=== PATIENT | female | born 1960 | race Caucasian/White ===

== ENCOUNTER → 2023-08-24 | Outpatient (CLI) | payer OTHER ==
[~2023-08-24] MED LIST: CALC0.0017 TOP; CICL0.7739 TOP; CLOB0.0526 TOP; LACT10SO3 PO; ONDA4SOL PO; PANT40TA29 PO; RANI-397 PO; XARE20TA PO
== END ==
LOC: M RAD 11:17
PROVIDERS: ATTEND Physician Assistant
DX: I87.2 Venous insufficiency (chronic) (peripheral) (principal); I82.812 Embolism and thrombosis of superficial veins of left lower extremity

== ENCOUNTER → 2024-10-10 | Outpatient (CLI) | payer OTHER ==
[~2024-10-10] MED LIST changes: -LACT10SO3 PO; +LACT10SO94 PO
== END ==
LOC: M WHC 09:27
PROVIDERS: ATTEND Family Medicine
DX: M89.8X9 Other specified disorders of bone, unspecified site (principal)

== ENCOUNTER → 2024-12-10 | Outpatient (CLI) | payer OTHER ==
[~2024-12-10] MED LIST changes: +METHACHOLINE KIT (6 VIAL.NEB PREMIX) INH ONE
== END ==
LOC: M CARPUL 08:29
PROVIDERS: ATTEND Physician Assistant
DX: R06.02 Shortness of breath (principal)
CPT/HCPCS: 94070; 95070; J7674

== ENCOUNTER → 2024-12-16 | Outpatient (CLI) | payer OTHER ==
[~2024-12-16] MED LIST changes: +APRE30TA3 PO; +ECOT81TA5 PO; +HYDR2.5C54 TOP; -METHACHOLINE KIT (6 VIAL.NEB PREMIX) INH ONE; +ONDA-282 PO; +ROFL60CR TP
[2024-12-16 12:13] LABS: PLATELET COUNT, AUTOMATED 185 10^3/uL (150-450)
[2024-12-16 12:48] LABS: ALT/SGPT 17.0 U/L (7.0-40); AST/SGOT 22.0 U/L (<34); CALCIUM LEVEL 9.1 MG/DL (8.3-10.6); CARBON DIOXIDE LEVEL 27.0 MMOL/L (20-31); CHLORIDE LEVEL 103.0 MMOL/L (98-107); CHOLESTEROL LEVEL 196.0 MG/DL (<200); CHOLESTEROL RISK RATIO 5.15 (<5); CREATININE FOR GFR 1.02 MG/DL (0.55-1.30); GLOMERULAR FILTRATION RATE 62.2 (>45); LDL CHOLESTEROL 138.2 MG/DL (<100); NON-HDL-C 158.0 MG/DL; POTASSIUM SERUM 4.0 MMOL/L (3.5-5.1); SODIUM LEVEL 141.0 MMOL/L (136-145); TRIGLYCERIDES LEVEL 99.0 MG/DL (<150)
== END ==
LOC: M LAB 11:25
PROVIDERS: ATTEND Internal Medicine Cardiovascular Disease
DX: I50.812 Chronic right heart failure (principal); I25.10 Atherosclerotic heart disease of native coronary artery without angina pectoris; R00.0 Tachycardia, unspecified; R07.9 Chest pain, unspecified; R06.02 Shortness of breath; E78.5 Hyperlipidemia, unspecified

== ENCOUNTER 2024-12-18 10:26 | Inpatient (IN) | payer OTHER, MEDICAID ==
[~2024-12-18] VITALS: Ht 167.6 cm; Wt 123.5 kg
[~2024-12-18 10:26] MED LIST changes: -APRE30TA3 PO; -ECOT81TA5 PO; -ELIQ5TAB PO; -HYDR2.5C54 TOP; -ISOVUE-370 76% 100 ML VIAL As Ordered ONE; -ONDA-282 PO; -ROFL60CR TP
[2024-12-18 11:14] LABS: VENOUS BASE EXCESS -0.1 (-2.0-2.0); VENOUS HCO3 25.6 MMOL/L (23.0-27.0); VENOUS O2 SATURATION 70.7 % (60.0-80.0); VENOUS PARTIAL PRESSURE CO2 45.9 mmHg (38.0-50.0); VENOUS PARTIAL PRESSURE O2 38.4 mmHg (30.0-50.0); VENOUS PH 7.365 UNITS (7.330-7.430); VENOUS STANDARD HCO3 23.8 MMOL/L; VENOUS TOTAL CO2 27.1 MMOL/L (24.0-28.0)
[2024-12-18] MEDS: HEPARIN SOD 5000 UNITS/ML 1 ML VIAL/SYRINGE IV ONE (11:21)
[2024-12-18] MEDS: HEPARIN DRIP 25,000 UNITS in IV 1 EA IV SCH (11:21)
[2024-12-18 11:22] LABS: BASO # 0.0 10^3/uL (0.0-0.2); BASO % 0.5 % (0.0-1.0); EOS # 0.0 10^3/uL (0.0-0.5); EOS % 0.9 % (0.0-3.0); LYMPH # 1.3 10^3/uL (1.5-5.0); LYMPH % 28.4 % (24.0-44.0); MONO # 0.5 10^3/uL (0.0-0.8); MONO % 10.2 % (2.0-8.0); NEUTROPHILS # 2.6 10^3/uL (1.5-8.5); NEUTROPHILS % 59.3 % (36.0-66.0); PLATELET COUNT, AUTOMATED 175 10^3/uL (150-450)
[2024-12-18 11:44] LABS: INR 0.95
[2024-12-18 11:48] LABS: CPK CREATINE PHOSPHOKINASE 39 U/L (34-145)
[2024-12-18 11:49] LABS: ALT/SGPT 15 U/L (7.0-40); AST/SGOT 21 U/L (<34); CALCIUM LEVEL 8.6 MG/DL (8.3-10.6); CARBON DIOXIDE LEVEL 27 MMOL/L (20-31); CHLORIDE LEVEL 104 MMOL/L (98-107); CK-MB VALUE MASS < 1.0 NG/ML (<3.6); CREATININE FOR GFR 0.84 MG/DL (0.55-1.30); GLOMERULAR FILTRATION RATE 78.5 (>45); POTASSIUM SERUM 3.9 MMOL/L (3.5-5.1); SODIUM LEVEL 140 MMOL/L (136-145)
[2024-12-18] MEDS ORDERED: ROFL60CR TP (12:18)
[2024-12-18] MEDS ORDERED: ECOT81TA5 PO (12:18)
[2024-12-18] MEDS ORDERED: HYDR2.5C54 TOP (12:18)
[2024-12-18] MEDS ORDERED: ONDA-282 PO (12:18)
[2024-12-18] MEDS ORDERED: APRE30TA3 PO (12:18)
[2024-12-18] MEDS ORDERED: HOME MED LIST COMPLETE! XX SCH (12:20)
[2024-12-18] MEDS: TAMSULOSIN 0.4 MG CAP PO SCH (13:45)
[2024-12-18] MEDS: ENOXAPARIN 120 MG/0.8 ML SYRINGE SC SCH (18:15)
[2024-12-18 18:31] VITALS: BP 150/72; TEMP 97.3; O2SAT 98
[2024-12-18 19:32] VITALS: BP 128/67; TEMP 98.1; O2SAT 94
[2024-12-18] MEDS: PANTOPRAZOLE 40MG TAB PO SCH (20:01)
[2024-12-18 23:27] VITALS: BP 137/79; TEMP 98.8; O2SAT 96
[2024-12-19] VITALS (8 sets, daily range): BP systolic 121–143; BP diastolic 67–79; TEMP 97–98; O2SAT 94–98
[2024-12-19 05:59] LABS: PLATELET COUNT, AUTOMATED 149 10^3/uL (150-450)
[2024-12-19 06:21] LABS: INR 1.0
[2024-12-19 06:31] LABS: CALCIUM LEVEL 8.4 MG/DL (8.3-10.6); CARBON DIOXIDE LEVEL 25.0 MMOL/L (20-31); CHLORIDE LEVEL 106.0 MMOL/L (98-107); CREATININE FOR GFR 0.82 MG/DL (0.55-1.30); GLOMERULAR FILTRATION RATE 80.8 (>45); POTASSIUM SERUM 3.8 MMOL/L (3.5-5.1); SODIUM LEVEL 140.0 MMOL/L (136-145)
[2024-12-19] MEDS: NS (Normal Saline) 0.9% 1,000 ML IV SCH ×2 (08:53→14:19)
[2024-12-19] MEDS ORDERED: ELIQ5TAB PO (11:29)
[2024-12-19] MEDS: ACETAMINOPHEN 325 MG TAB PO PRN (11:58)
[2024-12-19] MEDS ORDERED: NS (Normal Saline) 0.9% 1,000 ML IV SCH (12:15)
[2024-12-19] MEDS: ISOVUE-300 61% 100 ML VIAL IV SCH (14:18)
[2024-12-19] MEDS: LIDOCAINE 1% MDV 20 ML VIAL SC SCH (14:18)
[2024-12-19] MEDS: HEPARIN 1,000 UNITS/ML 10 ML VIAL (FOR RADIOLOGY & DIALYSIS ONLY) IV PRN (14:20)
[2024-12-19] MEDS: MIDAZOLAM INJ 2 MG/2 ML VIAL IV PRN (14:20)
[2024-12-20 00:06] VITALS: BP 124/72; TEMP 97.7; O2SAT 96
[2024-12-20 02:52] LABS: CARDIOLIPIN IGA ANTIBODY 4.7 APL-U/mL (<20.0); CARDIOLIPIN IGG ANTIBODY < 2.0 GPL-U/mL (<20.0); CARDIOLIPIN IGM ANTIBODY 21.6 MPL-U/mL (<20.0)
[2024-12-20 03:49] VITALS: BP 137/73; TEMP 97.2; O2SAT 93
[2024-12-20 05:57] LABS: BASO # 0.0 10^3/uL (0.0-0.2); BASO % 0.4 % (0.0-1.0); EOS # 0.1 10^3/uL (0.0-0.5); EOS % 1.3 % (0.0-3.0); LYMPH # 1.0 10^3/uL (1.5-5.0); LYMPH % 21.2 % (24.0-44.0); MONO # 0.6 10^3/uL (0.0-0.8); MONO % 13.3 % (2.0-8.0); NEUTROPHILS # 3.0 10^3/uL (1.5-8.5); NEUTROPHILS % 63.2 % (36.0-66.0); PLATELET COUNT, AUTOMATED 151 10^3/uL (150-450)
[2024-12-20 06:27] LABS: CALCIUM LEVEL 8.8 MG/DL (8.3-10.6); CARBON DIOXIDE LEVEL 25.0 MMOL/L (20-31); CHLORIDE LEVEL 107.0 MMOL/L (98-107); CREATININE FOR GFR 0.79 MG/DL (0.55-1.30); GLOMERULAR FILTRATION RATE 84.5 (>45); POTASSIUM SERUM 4.1 MMOL/L (3.5-5.1); SODIUM LEVEL 142.0 MMOL/L (136-145)
[2024-12-20 08:00] VITALS: BP 111/58; TEMP 96.1; O2SAT 94
[2024-12-20 08:55] LABS: DRVV SCREEN 42.7 SECONDS
[2024-12-20 09:21] LABS: PTT LUPUS TYPE ANTICOAG SCREEN 1.09 (0-1.20)
[2024-12-20] MEDS: LR 1,000 ML IV SCH (10:12)
[2024-12-20 12:00] VITALS: BP 126/66; TEMP 97.2; O2SAT 94
[2024-12-20 16:00] VITALS: BP 132/73; TEMP 97.2; O2SAT 96
[2024-12-20 19:43] VITALS: BP 136/71; TEMP 98.5; O2SAT 96
[2024-12-21] VITALS: BP 126/61; TEMP 98.1; O2SAT 96
[2024-12-21 03:44] VITALS: BP 130/70; TEMP 98.5; O2SAT 93
[2024-12-21 05:51] LABS: BASO # 0.0 10^3/uL (0.0-0.2); BASO % 0.5 % (0.0-1.0); EOS # 0.1 10^3/uL (0.0-0.5); EOS % 1.4 % (0.0-3.0); LYMPH # 1.3 10^3/uL (1.5-5.0); LYMPH % 30.7 % (24.0-44.0); MONO # 0.7 10^3/uL (0.0-0.8); MONO % 16.7 % (2.0-8.0); NEUTROPHILS # 2.2 10^3/uL (1.5-8.5); NEUTROPHILS % 50.0 % (36.0-66.0); PLATELET COUNT, AUTOMATED 148 10^3/uL (150-450)
[2024-12-21 06:22] LABS: CALCIUM LEVEL 8.2 MG/DL (8.3-10.6); CARBON DIOXIDE LEVEL 26.0 MMOL/L (20-31); CHLORIDE LEVEL 104.0 MMOL/L (98-107); CREATININE FOR GFR 0.77 MG/DL (0.55-1.30); GLOMERULAR FILTRATION RATE 87.2 (>45); POTASSIUM SERUM 3.9 MMOL/L (3.5-5.1); SODIUM LEVEL 140.0 MMOL/L (136-145)
[2024-12-21 08:44] VITALS: BP 130/74; TEMP 98.4; O2SAT 94
[2024-12-21] MEDS ORDERED: OXYC1TAB23 PO (11:26)
[2024-12-23 15:33] LABS: PHOSPHOLIPIDS LEVEL 188 mg/dL (151-264)
[2024-12-24 03:02] LABS: PROTEIN C FUNCTIONAL ACTIVITY 126 % normal (70-180); PROTEIN S FUNCTIONAL ACTIVITY 86 % normal (60-140)
[2024-12-24 23:52] LABS: ANTI THROMBIN 3 ANTIGEN IMMUNO 106 % normal (80-120); ANTI THROMBIN 3 FUNCT ACTIVITY 116 % normal (80-135)
[2024-12-25 00:42] LABS: BETA-2 GLYCOPROTEIN I ABY IGA 2.2 U/mL (<20.0); BETA-2 GLYCOPROTEIN I ABY IGG < 2.0 U/mL (<20.0); BETA-2 GLYCOPROTEIN I ABY IGM 16.1 U/mL (<20.0)
[2024-12-25 20:48] LABS: FACTOR V LEIDEN FOR MEDINET NEGATIVE
[2024-12-27 10:43] LABS: DRVV SCREEN 43.0 SECONDS
[2024-12-27 10:44] LABS: PTT LUPUS TYPE ANTICOAG SCREEN 1.11 (0-1.20)
== END 2024-12-21 12:14 | disposition home or self-care (01) | DRG 950 ==
LOC: M ED 10:26 → M ED INP 13:26 → M PCU 18:25
PROVIDERS: ADMIT Internal Medicine; ATTEND Internal Medicine
PROC: 02CQ3ZZ Extirpation of Matter from Right Pulmonary Artery, Percutaneous Approach (ICD-10-PCS; principal; 2024-12-19 13:00)
DX: I26.99 Other pulmonary embolism without acute cor pulmonale (principal); Z68.41 Body mass index [BMI] 40.0-44.9, adult; I82.811 Embolism and thrombosis of superficial veins of right lower extremity; N20.1 Calculus of ureter; I51.3 Intracardiac thrombosis, not elsewhere classified; E66.01 Morbid (severe) obesity due to excess calories; L40.9 Psoriasis, unspecified; K21.9 Gastro-esophageal reflux disease without esophagitis; R31.0 Gross hematuria; Z90.49 Acquired absence of other specified parts of digestive tract; Z79.82 Long term (current) use of aspirin; Z79.899 Other long term (current) drug therapy; Z88.0 Allergy status to penicillin; Z88.8 Allergy status to other drugs, medicaments and biological substances

== ENCOUNTER → 2024-12-18 | Outpatient (CLI) | payer OTHER ==
[~2024-12-18] MED LIST changes: +ELIQ5TAB PO; +ISOVUE-370 76% 100 ML VIAL As Ordered ONE
== END ==
LOC: M RAD 08:12
PROVIDERS: ATTEND Internal Medicine Cardiovascular Disease
DX: R00.0 Tachycardia, unspecified (principal); R07.9 Chest pain, unspecified; R06.02 Shortness of breath; I50.812 Chronic right heart failure; R94.31 Abnormal electrocardiogram [ECG] [EKG]; J98.11 Atelectasis; J98.4 Other disorders of lung
CPT/HCPCS: 71275; 93306; Q9967

== ENCOUNTER → 2024-12-25 | Outpatient (CLI) | payer OTHER ==
[~2024-12-25] MED LIST changes: +APRE30TA3 PO; +ATOR1TAB21 PO; +ECOT81TA5 PO; +ELIQ5TAB PO; +FLUT12AE2 INH; +HYDR2.5C54 TOP; +MECL-86 PO; +ONDA-282 PO; +OXYC1TAB23 PO; +ROFL60CR TP; +VENTAER INH
== END ==
LOC: M EKG 10:00
PROVIDERS: ATTEND Internal Medicine Cardiovascular Disease
DX: R00.0 Tachycardia, unspecified (principal)

== ENCOUNTER 2024-12-26 09:21 | Emergency (ER) | payer OTHER ==
[~2024-12-26] VITALS: Ht 167.6 cm; Wt 121.3 kg
[~2024-12-26 09:21] MED LIST changes: -ATOR1TAB21 PO; -FLUT12AE2 INH; -MECL-86 PO; -VENTAER INH
[2024-12-26] MEDS ORDERED: ATOR1TAB21 PO (09:29)
[2024-12-26 10:10] LABS: BASO # 0.0 10^3/uL (0.0-0.2); BASO % 0.7 % (0.0-1.0); EOS # 0.1 10^3/uL (0.0-0.5); EOS % 1.6 % (0.0-3.0); LYMPH # 1.2 10^3/uL (1.5-5.0); LYMPH % 21.7 % (24.0-44.0); MONO # 0.6 10^3/uL (0.0-0.8); MONO % 11.1 % (2.0-8.0); NEUTROPHILS # 3.6 10^3/uL (1.5-8.5); NEUTROPHILS % 64.4 % (36.0-66.0); PLATELET COUNT, AUTOMATED 212 10^3/uL (150-450)
[2024-12-26 10:42] LABS: CALCIUM LEVEL 9.3 MG/DL (8.3-10.6); CARBON DIOXIDE LEVEL 26.0 MMOL/L (20-31); CHLORIDE LEVEL 104.0 MMOL/L (98-107); CREATININE FOR GFR 0.85 MG/DL (0.55-1.30); GLOMERULAR FILTRATION RATE 77.4 (>45); INR 1.42; POTASSIUM SERUM 4.2 MMOL/L (3.5-5.1); SODIUM LEVEL 143.0 MMOL/L (136-145)
[2024-12-26] MEDS ORDERED: ELIQ5TAB PO (11:11)
[2024-12-26] MEDS ORDERED: OXYC1TAB23 PO (11:11)
[2024-12-26] MEDS ORDERED: MECL-86 PO (11:11)
[2024-12-26] MEDS ORDERED: VENTAER INH (11:11)
[2024-12-26] MEDS ORDERED: FLUT12AE2 INH (11:11)
[2024-12-26] MEDS ORDERED: ISOVUE-370 76% 100 ML VIAL As Ordered ONE (11:12)
[2024-12-26] MEDS ORDERED: HOME MED LIST COMPLETE! XX SCH (11:20)
[2024-12-26 12:21] VITALS: TEMP 97.2
[2024-12-26 13:00] VITALS: BP 134/74; O2SAT 99
== END 2024-12-26 13:12 | disposition home or self-care (01) ==
LOC: M ED 09:21
DX: M79.81 Nontraumatic hematoma of soft tissue (principal); R00.0 Tachycardia, unspecified; Z88.0 Allergy status to penicillin; Z88.8 Allergy status to other drugs, medicaments and biological substances; Z79.51 Long term (current) use of inhaled steroids; Z79.01 Long term (current) use of anticoagulants; Z79.899 Other long term (current) drug therapy
CPT/HCPCS: 36415; 71045; 74177; 80048; 85025; 85610; 93005; 93041; 93926; 94760; 99285; Q9967

== ENCOUNTER → 2025-01-06 | Outpatient (POV) | payer OTHER ==
[~2025-01-06] MED LIST changes: +ATOR1TAB21 PO; +FLUT12AE2 INH; +GNP250TA9 PO; +MECL-86 PO; +MULT-90 PO; +VENTAER INH
== END ==
LOC: M IRPOV 09:00
PROVIDERS: ATTEND Registered Nurse School
DX: R06.09 Other forms of dyspnea (principal); L76.32 Postprocedural hematoma of skin and subcutaneous tissue following other procedure; R31.9 Hematuria, unspecified; Z79.01 Long term (current) use of anticoagulants; Z79.82 Long term (current) use of aspirin; Z79.899 Other long term (current) drug therapy; Z86.711 Personal history of pulmonary embolism

== ENCOUNTER → 2025-01-07 | Outpatient (CLI) | payer OTHER ==
[~2025-01-07] MED LIST changes: -GNP250TA9 PO; -MULT-90 PO
== END ==
LOC: M SLEEP HO 10:55
PROVIDERS: ATTEND Internal Medicine Cardiovascular Disease
DX: I50.812 Chronic right heart failure (principal); G47.33 Obstructive sleep apnea (adult) (pediatric)

== ENCOUNTER → 2025-01-15 | Outpatient (CLI) | payer OTHER ==
[~2025-01-15] MED LIST changes: +GNP250TA9 PO; +MULT-90 PO
[2025-01-15 11:27] LABS: PLATELET COUNT, AUTOMATED 223 10^3/uL (150-450)
[2025-01-15 12:10] LABS: APPEARANCE, URINE MANUAL TURBID (CLEAR); COLOR, URINE MANUAL BROWN (YELLOW)
[2025-01-15 12:13] LABS: PH,URINE MAN 6.0 UNITS (5.0 - 7.0); PROTEIN, URINE MANUAL NEGATIVE (NEGATIVE); SPECIFIC GRAVITY,URINE MANUAL 1.005 (1.002-1.035)
[2025-01-15 12:14] LABS: BILIRUBIN, URINE MANUAL 2+ (NEGATIVE); GLUCOSE, URINE (UA) MANUAL 1+(100 MG/DL) mg/dL (NEGATIVE); KETONE, URINE MANUAL NEGATIVE (NEGATIVE); LEUKOCYTE ESTERASE, URINE MAN TRACE (NEGATIVE); NITRITE, URINE MANUAL NEGATIVE (NEGATIVE); UROBILINOGEN, URINE MANUAL NORMAL (NORMAL)
[2025-01-15 12:21] LABS: BLOOD URINE MANUAL POSITIVE (NEGATIVE)
[2025-01-15 12:31] LABS: RBC, URINE TNTC /hpf (0-3); SQUAMOUS EPITHELIAL CELL URINE LARGE AMOUNT /hpf (SMALL AMT); WBC, URINE 20-30 /hpf (0-3)
[2025-01-15 12:33] LABS: BACTERIA, URINE MOD AMOUNT; HYALINE CAST, URINE NONE SEEN /lpf (0-1)
[2025-01-15 12:36] LABS: CALCIUM LEVEL 9.5 MG/DL (8.3-10.6); CARBON DIOXIDE LEVEL 27.0 MMOL/L (20-31); CHLORIDE LEVEL 104.0 MMOL/L (98-107); CREATININE FOR GFR 1.07 MG/DL (0.55-1.30); GLOMERULAR FILTRATION RATE 58.7 (>45); POTASSIUM SERUM 4.8 MMOL/L (3.5-5.1); SODIUM LEVEL 143.0 MMOL/L (136-145)
== END ==
LOC: M LAB 09:06
PROVIDERS: ATTEND Urology
DX: Z01.818 Encounter for other preprocedural examination (principal); N20.0 Calculus of kidney

== ENCOUNTER → 2025-01-15 | Outpatient (POV) | payer OTHER | LOC: M IRPOV 09:30 | PROVIDERS: ATTEND Radiology Diagnostic Radiology | DX: Z09 Encounter for follow-up examination after completed treatment for conditions other than malignant neoplasm (principal); N20.0 Calculus of kidney; R31.0 Gross hematuria; R06.00 Dyspnea, unspecified; Z15.81 Genetic susceptibility to multiple endocrine neoplasia [MEN]; Z79.01 Long term (current) use of anticoagulants; Z79.899 Other long term (current) drug therapy; Z86.711 Personal history of pulmonary embolism; Z86.718 Personal history of other venous thrombosis and embolism ==

== ENCOUNTER → 2025-01-21 | Outpatient (CLI) | payer OTHER | LOC: M CARPUL 08:08 | PROVIDERS: ATTEND Nurse Practitioner Family | DX: R06.02 Shortness of breath (principal) ==

== ENCOUNTER → 2025-02-09 | Outpatient (CLI) | payer OTHER | LOC: M SLEEP 20:00 | PROVIDERS: ATTEND Nurse Practitioner Adult Health | DX: G47.33 Obstructive sleep apnea (adult) (pediatric) (principal) ==

== ENCOUNTER → 2025-02-10 | Outpatient (CLI) | payer OTHER ==
[2025-02-10 08:31] LABS: APPEARANCE, URINE MANUAL CLOUDY (CLEAR); COLOR, URINE MANUAL RED (YELLOW)
[2025-02-10 08:32] LABS: GLUCOSE, URINE (UA) MANUAL NEGATIVE (NEGATIVE); LEUKOCYTE ESTERASE, URINE MAN TRACE (NEGATIVE); NITRITE, URINE MANUAL NEGATIVE (NEGATIVE); PH,URINE MAN 5.0 UNITS (5.0 - 7.0); PROTEIN, URINE MANUAL 3+ mg/dL (NEGATIVE); SPECIFIC GRAVITY,URINE MANUAL 1.025 (1.002-1.035)
[2025-02-10 08:33] LABS: BILIRUBIN, URINE MANUAL NEGATIVE (NEGATIVE); BLOOD URINE MANUAL POSITIVE (NEGATIVE); KETONE, URINE MANUAL NEGATIVE (NEGATIVE); UROBILINOGEN, URINE MANUAL NORMAL (NORMAL)
[2025-02-10 08:37] LABS: BACTERIA, URINE MOD AMOUNT; RBC, URINE TNTC /hpf (0-3); SQUAMOUS EPITHELIAL CELL URINE MOD AMOUNT /hpf (SMALL AMT)
[2025-02-10 08:39] LABS: HYALINE CAST, URINE NONE SEEN /lpf (0-1); WBC, URINE TNTC /hpf (0-3)
== END ==
LOC: M LAB 06:54
PROVIDERS: ATTEND Urology
DX: Z01.818 Encounter for other preprocedural examination (principal); N20.0 Calculus of kidney